=== PATIENT | female | born 1955 | race Caucasian/White ===

== ENCOUNTER 2021-08-21 10:28 | Inpatient (IN) | payer MEDICARE, BC ==
[2021-08-21] MEDS ORDERED: Ondansetron 4 MG/2 ML SDV IVPUSH ONE (11:14)
[2021-08-21] MEDS ORDERED: Sodium Chloride 0.9% 1,000 ML IV SCH (11:15)
[2021-08-21] MEDS ORDERED: Albuterol/Ipratropium 3.0-0.5 MG/3 ML Neb Soln NEB ONE (11:16)
[2021-08-21] MEDS: Sodium Chloride 0.9% 10 ML Syringe FLUSH PRN ×2 (11:26→13:21)
--- NOTE | 2021-08-21 12:05 | EDM.PDOC ---
ED HPI GENERAL MEDICAL PROBLEM - General Chief Complaint: General Stated Complaint: POSS COVID Time Seen by Provider: 08/21/21 10:59 Source of Information: Reports: Patient History Limitations: Reports: No Limitations - History of Present Illness INITIAL COMMENTS - FREE TEXT/NARRATIVE: The patient presents with generalized weakness. She was diagnosed with COVID 19 on August 09. She has a cough and shortness of breath. She has no fever or chills. She has no appetite but she is trying to eat and drink. She has no diarrhea. She has no chest pain. She has no abdominal pain. She has no lung problems like asthma. She has no heart problems. She has nausea at times but no vomiting. Onset: Gradual Duration: Week(s): Severity: Moderate Improves with: Reports: None Worsens with: Reports: None Associated Symptoms: Reports: Cough, Nausea/Vomiting, Shortness of Breath. Denies: Chest Pain, Fever/Chills, Headaches - Related Data Allergies Allergy/AdvReac Type Severity Reaction Status Date / Time No Known Allergies Allergy Verified 08/21/21 11:02 Home Meds: Home Meds . [No Known Home Meds] 08/21/21 [History] Past Medical History HEENT History: Reports: Impaired Vision Other HEENT History: wears eyeglasses [employer] History: Reports: - Infectious Disease History Infectious Disease History: Reports: Chicken Pox, Mumps, Novel Coronavirus - Past Surgical History GI Surgical History: Reports: Hernia, Abdominal, Other (See Below) Other GI Surgeries/Procedures: in infancy. Social & Family History - Tobacco Use Tobacco Use Status *Q: Never Tobacco User Second Hand Smoke Exposure: No - Caffeine Use Caffeine Use: Reports: Soda - Recreational Drug Use Recreational Drug Use: No ED ROS GENERAL - Review of Systems Review Of Systems: See Below Constitutional: Reports: Malaise, Weakness, Fatigue. Denies: Fever, Chills HEENT: Reports: No Symptoms Respiratory: Reports: Shortness of Breath, Cough Cardiovascular: Reports: No Symptoms Endocrine: Reports: Fatigue GI/Abdominal: Reports: Nausea. Denies: Abdominal Pain, Diarrhea, Vomiting : Reports: No Symptoms Musculoskeletal: Reports: No Symptoms ED EXAM, GENERAL - Physical Exam Exam: See Below Exam Limited By: No Limitations General Appearance: Alert, No Apparent Distress Ears: Normal External Exam Nose: Normal Inspection Head: Atraumatic, Normocephalic Neck: Normal Inspection Respiratory/Chest: No Respiratory Distress, Decreased Breath Sounds Cardiovascular: Regular Rate, Rhythm, No Edema, No Murmur GI/Abdominal: Soft, Non-Tender, No Organomegaly, No Mass Back Exam: Normal Inspection Extremities: Normal Inspection #1 Interpretation EKG Date: 08/21/21 Time: 11:40 Rhythm: NSR Rate (Beats/Min): 77 [place]: Normal P-Wave: Present QRS: Normal ST-T: Normal QT: Normal Course - Vital Signs Last Recorded V/S: Last Vital Signs Temp 97.5 F 08/21/21 10:55 Pulse 80 08/21/21 10:55 Resp 16 08/21/21 10:55 BP 172/82 H 08/21/21 10:55 Pulse Ox 91 L 08/21/21 11:16 - Orders/Labs/Meds Orders: Active Orders 24 hr Category Date Time Status Cardiac Monitoring [RC] . DIRECTED Care 08/21/21 11:14 Active Oxygen Therapy [RC] PRN Care 08/21/21 11:14 Active Peripheral IV Care [RC] . DIRECTED Care 08/21/21 11:14 Active RT Aerosol Therapy [RC] ASDIRECTED Care 08/21/21 11:16 Active Sodium Chloride 0.9% [Normal Saline] 1,000 ml Med 08/21/21 11:15 Active IV .BOLUS Sodium Chloride 0.9% [Saline Flush] Med 08/21/21 11:14 Active 10 ml FLUSH ASDIRECTED PRN ED Antiemetic Medication Reflex [OM.PC] Stat Oth 08/21/21 11:14 Ordered Peripheral IV Insertion Adult [OM.PC] Stat Oth 08/21/21 11:14 Ordered Medication Orders Sodium Chloride (Normal Saline) 1,000 mls @ 1,000 mls/hr IV .BOLUS JOSE Last Admin: 08/21/21 11:29 Dose: 1,000 mls/hr Documented by: SHAINA Sodium Chloride (Sodium Chloride 0.9% 10 Ml Syringe) 10 ml FLUSH ASDIRECTED PRN PRN Reason: Keep Vein Open Last Admin: 08/21/21 13:21 Dose: 10 ml Documented by: Admin: 08/21/21 11:26 Dose: 10 ml Documented by: SHAINA Labs: Laboratory Tests 08/21/21 08/21/21 08/21/21 Range/Units 11:25 11:25 11:25 WBC 9.27 (3.98-10.04) K/mm3 RBC 4.73 (3.98-5.22) M/mm3 Hgb 13.1 (11.2-15.7) gm/dl Hct 39.8 (34.1-44.9) % MCV 84.1 (79.4-94.8) fl MCH 27.7 (25.6-32.2) pg MCHC 32.9 (32.2-35.5) g/dl RDW Std Deviation 45.8 (36.4-46.3) fL Plt Count 336 (182-369) K/mm3 MPV 10.3 (9.4-12.3) fl Neut % (Auto) 79.2 H (34.0-71.1) % Lymph % (Auto) 11.0 L (19.3-51.7) % [place] % (Auto) 8.1 (4.7-12.5) % Eos % (Auto) 0.4 L (0.7-5.8) Baso % (Auto) 0.3 (0.1-1.2) % Neut # (Auto) 7.34 H (1.56-6.13) K/mm3 Lymph # (Auto) 1.02 L (1.18-3.74) K/mm3 [place] # (Auto) 0.75 H (0.24-0.36) K/mm3 Eos # (Auto) 0.04 (0.04-0.36) K/mm3 Baso # (Auto) 0.03 (0.01-0.08) K/mm3 Manual Slide Review Abnormal smear D-Dimer, Quantitative 13.35 H (0.19-0.50) mg/L Sodium 134 L (136-145) mEq/L Potassium 2.9 L (3.5-5.1) mEq/L Chloride 96 L (98-107) mEq/L Carbon Dioxide 29 (21-32) mEq/L Anion Gap 11.9 (5-15) BUN 8 (7-18) mg/dL Creatinine 0.7 (0.55-1.02) mg/dL Est Cr Clr Drug Dosing 78.95 mL/min Estimated GFR (MDRD) > 60 (>60) mL/min BUN/Creatinine Ratio 11.4 L (14-18) Glucose 128 H (70-99) mg/dL Calcium 8.4 L (8.5-10.1) mg/dL Total Bilirubin 0.8 (0.2-1.0) mg/dL AST 17 (15-37) U/L ALT 18 (14-59) U/L Alkaline Phosphatase 48 (46-116) U/L Troponin I < 0.017 (0.00-0.056) ng/mL C-Reactive Protein 16.5 H* (<1.0) mg/dL Total Protein 7.2 (6.4-8.2) g/dl Albumin 2.5 L (3.4-5.0) g/dl Globulin 4.7 gm/dL Albumin/Globulin Ratio 0.5 L (1-2) Meds: Medications Generic Name Dose Route Start Last Admin Trade Name Freq PRN Reason Stop Dose Admin Sodium Chloride 1,000 mls @ 1,000 mls/hr 08/21/21 11:15 08/21/21 11:29 Normal Saline IV 1,000 mls/hr .BOLUS JOSE Administration Sodium Chloride 10 ml 08/21/21 11:14 08/21/21 13:21 Sodium Chloride 0.9% 10 Ml Syringe FLUSH 10 ml ASDIRECTED PRN Administration Keep Vein Open Discontinued Medications Generic Name Dose Route Start Last Admin Trade Name Freq PRN Reason Stop Dose Admin Albuterol/Ipratropium 3 ml 08/21/21 11:16 08/21/21 11:37 Albuterol/Ipratropium 3.0-0.5 Mg/3 Ml Neb Soln NEB 08/21/21 11:17 3 ml ONETIME ONE Administration Apixaban 5 mg 08/21/21 13:47 Apixaban 5 Mg Tab PO 08/21/21 13:48 ONETIME ONE Iopamidol 100 ml 08/21/21 12:55 08/21/21 13:21 Iopamidol 755 Mg/Ml 100 Ml Bottle IVPUSH 08/21/21 12:56 100 ml ONETIME ONE Administration Ondansetron HCl 4 mg 08/21/21 11:14 08/21/21 11:27 Ondansetron 4 Mg/2 Ml Sdv IVPUSH 08/21/21 11:15 4 mg ONETIME ONE Administration - Re-Assessments/Exams Free Text/Narrative Re-Assessment/Exam: 08/21/21 12:03 I ordered an IV NS 1L bolus, zofran 4mg IV, albuterol 2 puffs, labs, CXR and EKG. Her EKG shows a NSR with no acute changes. Her CXR shows bilateral infiltrates. 08/21/21 13:50 Her CBC looks good. Her D-dimer was elevated at 13.35. Her Na was low at 134. Her potassium was low at 2.9. Her troponin is negative. Her CRP is elevated at 16.5. Her D-dimer is way more elevated then what I would expect with COVID [address] so I ordered a CT angio of her chest. Her oxygen was low at 85%. I put her on oxygen. Her CT angio shows prominent pulmonary emboli. Scattered areas of increased density within both lungs most likely representing COVID pneumonia. Large hiatal hernia. I took her off the oxygen and she still went down to 85%. I put her back on and I feel she needs to ge admitted. I called Dr Alvarez and he agreed to the admission. I ordered eliquis 5mg PO. I will also give her some potassium for he low potassium. Departure - Departure Time of Disposition: 13:55 Disposition: Admitted As Inpatient 67 Condition: Serious Clinical Impression: Hypoxia, Hypokalemia, COVID-19, Pneumonia due to COVID-19 virus Pulmonary emboli Qualifiers: Pulmonary embolism type: other Chronicity: acute Acute cor pulmonale presence: without acute cor pulmonale Qualified Code(s): I26.99 - Other pulmonary embolism without acute cor pulmonale - Discharge Information Referrals: PCP,None [Primary Care Provider] - Forms: ED Department Discharge Sepsis Event Note (ED) - Evaluation Sepsis Screening Result: No Definite Risk - Focused Exam Vital Signs: Vital Signs Temp Pulse Resp BP Pulse Ox Pulse Ox 08/21/21 11:16 91 L 08/21/21 10:55 97.5 F 80 16 172/82 H 91 L - My Orders Last 24 Hours: My Active Orders 08/21/21 11:14 Cardiac Monitoring [RC] . DIRECTED Oxygen Therapy [RC] PRN Peripheral IV Care [RC] . DIRECTED Sodium Chloride 0.9% [Saline Flush] 10 ml FLUSH ASDIRECTED PRN ED Antiemetic Medication Reflex [OM.PC] Stat Peripheral IV Insertion Adult [OM.PC] Stat 08/21/21 11:15 Sodium Chloride 0.9% [Normal Saline] 1,000 ml IV .BOLUS 08/21/21 11:16 RT Aerosol Therapy [RC] ASDIRECTED - Assessment/Plan Last 24 Hours: My Active Orders 08/21/21 11:14 Cardiac Monitoring [RC] . DIRECTED Oxygen Therapy [RC] PRN Peripheral IV Care [RC] . DIRECTED Sodium Chloride 0.9% [Saline Flush] 10 ml FLUSH ASDIRECTED PRN ED Antiemetic Medication Reflex [OM.PC] Stat Peripheral IV Insertion Adult [OM.PC] Stat 08/21/21 11:15 Sodium Chloride 0.9% [Normal Saline] 1,000 ml IV .BOLUS 08/21/21 11:16 RT Aerosol Therapy [RC] ASDIRECTED
[2021-08-21] MEDS ORDERED: Iopamidol 755 Mg/ML 100 ML Bottle IVPUSH ONE (12:55)
--- NOTE | 2021-08-21 12:55 | CR ---
Chest: Frontal view of the chest was obtained. Comparison: No prior chest imaging is available. Patchy increased density is seen within both lower lungs as well as minimal density within both upper lungs. Heart size and mediastinum are within normal limits. Bony structures show nothing acute. Impression: 1. Increased density within both sides of the chest highly suspicious for COVID pneumonia. 2. No other acute abnormality is seen. Diagnostic code #3
--- NOTE | 2021-08-21 13:32 | CT ---
CT chest Technique: Multiple axial sections through the chest were obtained. Intravenous contrast was utilized. Study has been performed as a pulmonary angiogram protocol. Comparison: Prior chest x-ray performed on the same day (11:11 AM). Findings: Filling defect is identified which bridges the right and left main pulmonary arteries. Pulmonary emboli extend into the left upper lung as well as into the left lower lung. Additional pulmonary emboli are seen within the right upper lung as well as right middle lobe and right lower lobe. Thoracic aorta shows no aneurysm. Small mediastinal lymph nodes are seen which are felt to be within normal limits. No axillary adenopathy is seen. Large hiatal hernia is noted. Other visualized upper abdominal structures show nothing acute. Lung window settings were reviewed. Patchy areas of increased density are noted throughout both lungs which are most prominent within the lower lungs. No pleural effusions are seen. Bone window settings were reviewed which show mild scattered degenerative change within the spine. No acute osseous abnormality is appreciated. Impression: 1. Prominent pulmonary emboli as described above. 2. Scattered areas of increased density within both lungs most likely representing COVID pneumonia. 3. Large hiatal hernia. Diagnostic code #5
[2021-08-21] MEDS ORDERED: Apixaban 5 MG Tab PO ONE ×2 (13:47→17:15)
[2021-08-21] MEDS ORDERED: Potassium Chloride 20 MEQ Tab.ER PO ONE ×2 (13:54→21:00)
[2021-08-21] MEDS ORDERED: Acetaminophen 325 MG Tab PO PRN (17:08)
[2021-08-21] MEDS ORDERED: Ondansetron 4 MG/2 ML SDV IV PRN (17:08)
[2021-08-21] MEDS ORDERED: Temazepam 7.5 MG Cap PO PRN (17:08)
--- NOTE | 2021-08-21 17:15 | PCM.HP.2 ---
H&P History of Present Illness - General Date of Service: 08/21/21 Admit Problem/Dx: Admission Diagnosis/Problem Admission Diagnosis/Problem Pneumonia - History of Present Illness Initial Comments - Free Text/Narative: 65-year-old with no prior medical problems and not vaccinated against COVID-19 presents to the emergency department with increasing shortness of breath and fatigue. She states that she was diagnosed on August 09, but the same time she started developing symptoms. She has had some loose stools and nausea at times. She does complain of decreased appetite but no significant change in her taste or smell. She does have a cough. She had some fever and chills early on but those have resolved. In the emergency department she was found to have a significantly elevated D- dimer of 13.3. CT angio of the chest showed prominent pulmonary emboli, without mention of heart strain. Also, scattered areas of increased density within both lungs most likely representing Covid pneumonia. Large hiatal hernia. - Related Data Allergies/Adverse Reactions: Allergies Allergy/AdvReac Type Severity Reaction Status Date / Time No Known Allergies Allergy Verified 08/21/21 15:58 Home Medications: Home Meds . [No Known Home Meds] 08/21/21 [History] Past Medical History HEENT History: Reports: Impaired Vision Other HEENT History: wears eyeglasses [employer] History: Reports: - Infectious Disease History Infectious Disease History: Reports: Chicken Pox, Mumps, Novel Coronavirus - Past Surgical History GI Surgical History: Reports: Hernia, Abdominal, Other (See Below) Other GI Surgeries/Procedures: in infancy. Social & Family History - Tobacco Use Tobacco Use Status *Q: Never Tobacco User Second Hand Smoke Exposure: No - Caffeine Use Caffeine Use: Reports: Soda - Recreational Drug Use Recreational Drug Use: No H&P Review of Systems - Review of Systems: Review Of Systems: Comprehensive ROS is negative, except as noted in HPI. Exam - Exam Exam: See Below - Vital Signs Vital Signs: Last Vital Signs Temp 97.5 F 08/21/21 15:20 Pulse 87 08/21/21 15:20 Resp 23 H 08/21/21 15:20 BP 145/83 H 08/21/21 15:20 Pulse Ox 97 08/21/21 15:20 Weight: 189 lb 14.4 oz - Exam Quality Assessment: Supplemental Oxygen General: Alert, Oriented, 4 HEENT: Conjunctiva Clear, Hearing Intact, Mucosa Moist & [place], Normal Nasal Septum Neck: Supple, Trachea Midline, 2 Lungs: Crackles (Bibasilar). No: Normal Respiratory Effort (Increased effort) Cardiovascular: Regular Rate, Regular Rhythm GI/Abdominal Exam: Normal Bowel Sounds, Soft, Non-Tender, No Organomegaly, No Distention, No Abnormal Bruit, No Mass Back Exam: Normal Inspection, Full Range of Motion, NT Extremities: Normal Inspection, Normal Range of Motion, No Pedal Edema, Normal Capillary Refill Skin: Warm, Dry, Intact Neuro Extensive - Mental Status: Alert, Oriented x3, Normal Mood/Affect, Normal Cognition, Memory Intact Psychiatric: Alert, Normal Affect, Normal Mood - Patient Data Lab Results Last 24 hrs: Laboratory Results - last 24 hr 08/21/21 08/21/21 08/21/21 Range/Units 11:25 11:25 11:25 WBC 9.27 (3.98-10.04) K/mm3 RBC 4.73 (3.98-5.22) M/mm3 Hgb 13.1 (11.2-15.7) gm/dl Hct 39.8 (34.1-44.9) % MCV 84.1 (79.4-94.8) fl MCH 27.7 (25.6-32.2) pg MCHC 32.9 (32.2-35.5) g/dl RDW Std Deviation 45.8 (36.4-46.3) fL Plt Count 336 (182-369) K/mm3 MPV 10.3 (9.4-12.3) fl Neut % (Auto) 79.2 H (34.0-71.1) % Lymph % (Auto) 11.0 L (19.3-51.7) % [place] % (Auto) 8.1 (4.7-12.5) % Eos % (Auto) 0.4 L (0.7-5.8) Baso % (Auto) 0.3 (0.1-1.2) % Neut # (Auto) 7.34 H (1.56-6.13) K/mm3 Lymph # (Auto) 1.02 L (1.18-3.74) K/mm3 [place] # (Auto) 0.75 H (0.24-0.36) K/mm3 Eos # (Auto) 0.04 (0.04-0.36) K/mm3 Baso # (Auto) 0.03 (0.01-0.08) K/mm3 Manual Slide Review Abnormal smear D-Dimer, Quantitative 13.35 H (0.19-0.50) mg/L Sodium 134 L (136-145) mEq/L Potassium 2.9 L (3.5-5.1) mEq/L Chloride 96 L (98-107) mEq/L Carbon Dioxide 29 (21-32) mEq/L Anion Gap 11.9 (5-15) BUN 8 (7-18) mg/dL Creatinine 0.7 (0.55-1.02) mg/dL Est Cr Clr Drug Dosing 78.95 mL/min Estimated GFR (MDRD) > 60 (>60) mL/min BUN/Creatinine Ratio 11.4 L (14-18) Glucose 128 H (70-99) mg/dL Calcium 8.4 L (8.5-10.1) mg/dL Total Bilirubin 0.8 (0.2-1.0) mg/dL AST 17 (15-37) U/L ALT 18 (14-59) U/L Alkaline Phosphatase 48 (46-116) U/L Troponin I < 0.017 (0.00-0.056) ng/mL C-Reactive Protein 16.5 H* (<1.0) mg/dL Total Protein 7.2 (6.4-8.2) g/dl Albumin 2.5 L (3.4-5.0) g/dl Globulin 4.7 gm/dL Albumin/Globulin Ratio 0.5 L (1-2) Result Diagrams: 08/21/21 11:25 08/21/21 11:25 Sepsis Event Note - Evaluation Sepsis Screening Result: No Definite Risk - Focused Exam Vital Signs: Vital Signs Temp Pulse Resp BP Pulse Ox Pulse Ox 08/21/21 15:20 97.5 F 87 23 H 145/83 H 97 08/21/21 11:16 91 L 08/21/21 10:55 97.5 F 80 16 172/82 H 91 L - Problem List (1) Hypoxia SNOMED Code(s): 299177255 ICD Code: R09.02 - HYPOXEMIA Status: Acute Current Visit: Yes (2) Pneumonia due to COVID-19 virus SNOMED Code(s): 791255754213911128 ICD Code: U07.1 - COVID-19; J12.82 - PNEUMONIA DUE TO CORONAVIRUS DISEASE 2019 Status: Acute Current Visit: Yes (3) Pulmonary emboli SNOMED Code(s): 40162814 ICD Code: I26.99 - OTHER PULMONARY EMBOLISM WITHOUT ACUTE COR PULMONALE Status: Acute Current Visit: Yes Qualifiers: Pulmonary embolism type: other Chronicity: acute Acute cor pulmonale presence: without acute cor pulmonale Qualified Code(s): I26.99 - Other pulmonary embolism without acute cor pulmonale Problem List Initiated/Reviewed/Updated: Yes Orders Last 24hrs: Active Orders 24 hr Category Date Time Status Patient Status [ADT] Routine ADT 08/21/21 15:19 Active Cardiac Monitoring [RC] . DIRECTED Care 08/21/21 11:14 Active Oxygen Therapy [RC] PRN Care 08/21/21 11:14 Active RT Aerosol Therapy [RC] ASDIRECTED Care 08/21/21 11:16 Active Up ad [place] [RC] ASDIRECTED Care 08/21/21 17:08 Ordered VTE/DVT Education [RC] PER UNIT ROUTINE Care 08/21/21 17:08 Ordered Vital Signs [RC] Q4H Care 08/21/21 17:08 Ordered Respiratory Care Assess and Treatment [CONS] Routine Cons 08/21/21 17:08 Ordered Regular Diet [DIET] Diet 08/21/21 Dinner Ordered C-REACTIVE PROTEIN [CHEM] AM Lab 08/22/21 05:11 Ordered CBC WITH AUTO DIFF [HEME] AM Lab 08/22/21 05:11 Ordered CMP [COMPREHENSIVE METABOLIC PN,CMP] [CHEM] AM Lab 08/22/21 05:11 Ordered MAGNESIUM [CHEM] AM Lab 08/22/21 05:11 Ordered PHOSPHORUS [CHEM] AM Lab 08/22/21 05:11 Ordered Acetaminophen [TylenoL] Med 08/21/21 17:08 Ordered 650 mg PO Q4H PRN Apixaban [Eliquis] Med 08/22/21 09:00 Ordered 10 mg PO BID Apixaban [Eliquis] Med 08/21/21 17:15 Once 5 mg PO ONETIME ONE Ondansetron [Zofran] Med 08/21/21 17:08 Ordered 4 mg IV Q6H PRN Potassium Chloride [Klor-Con M20] Med 08/21/21 21:00 Once 40 meq PO ONETIME ONE Remdesivir 100 mg Med 08/22/21 17:15 Ordered Sodium Chloride 0.9% [Normal Saline] 100 ml IV Q24H Remdesivir 200 mg Med 08/21/21 17:12 Ordered Sodium Chloride 0.9% [Normal Saline] 250 ml IV ONETIME Sodium Chloride 0.9% [Normal Saline] 1,000 ml Med 08/21/21 11:15 Active IV .BOLUS Sodium Chloride 0.9% [Saline Flush] Med 08/21/21 11:14 Active 10 ml FLUSH ASDIRECTED PRN Temazepam [Restoril] Med 08/21/21 17:08 Ordered 7.5 mg PO BEDTIME PRN dexAMETHasone Med 08/21/21 17:15 Ordered 6 mg PO Q24H ED Antiemetic Medication Reflex [OM.PC] Stat Oth 08/21/21 11:14 Ordered Peripheral IV Insertion Adult [OM.PC] Stat Oth 08/21/21 11:14 Ordered Resuscitation Status Routine Resus Stat 08/21/21 17:08 Ordered Medication Orders Acetaminophen (Acetaminophen 325 Mg Tab) 650 mg PO Q4H PRN PRN Reason: Pain (Mild 1-3)/fever Apixaban (Apixaban 5 Mg Tab) 5 mg PO ONETIME ONE Stop: 08/21/21 17:16 Apixaban (Apixaban 5 Mg Tab) 10 mg PO BID JOSE Dexamethasone (Dexamethasone 4 Mg Tab) 6 mg PO Q24H JOSE Stop: 08/30/21 17:16 Sodium Chloride (Normal Saline) 1,000 mls @ 1,000 mls/hr IV .BOLUS JOSE Last Admin: 08/21/21 11:29 Dose: 1,000 mls/hr Documented by: SHAINA Remdesivir 200 mg/ Sodium (Chloride) 250 mls @ 250 mls/hr IV ONETIME ONE Stop: 08/21/21 17:13 Remdesivir 100 mg/ Sodium (Chloride) 100 mls @ 100 mls/hr IV Q24H JOSE Stop: 08/25/21 18:14 Ondansetron HCl (Ondansetron 4 Mg/2 Ml Sdv) 4 mg IV Q6H PRN PRN Reason: Nausea/Vomiting Potassium Chloride (Potassium Chloride 20 Meq Tab.Er) 40 meq PO ONETIME ONE Stop: 08/21/21 21:01 Sodium Chloride (Sodium Chloride 0.9% 10 Ml Syringe) 10 ml FLUSH ASDIRECTED PRN PRN Reason: Keep Vein Open Last Admin: 08/21/21 13:21 Dose: 10 ml Documented by: [id number] Admin: 08/21/21 11:26 Dose: 10 ml Documented by: SHAINA Temazepam (Temazepam 7.5 Mg Cap) 7.5 mg PO BEDTIME PRN PRN Reason: Sleep Assessment/Plan Comment:: 65-year-old with no previous medical problems admitted for COVID-19 pneumonia and multiple pulmonary emboli COVID-19 pneumonia Hypoxemia Pulmonary emboli without right heart strain * Symptoms started approximately 10 days ago. * Currently on 1 to 2 L nasal cannula * Significant elevation in D-dimer with confirmed pulmonary emboli on CTA * CRP significantly elevated at 16.5 with an albumin of 2.5. * WBC 9.27 * Given Eliquis 5 mg in the emergency department. * is also currently admitted with Covid pneumonia Hypokalemia * Potassium 2.9 * Given potassium 40 mEq in the emergency department Plan * Admit to medical floor * FiO2 to keep SPO2 between 88 and 94% * Start remdesivir and dexamethasone secondary to hypoxemia * Give extra 5 mg of Eliquis then start 10 mg twice daily in the morning * Give another 40 mEq of KCl tonight * RT, I-S, prone positioning, and typical COVID-19 pneumonia treatment * Albuterol, duo nebs as needed * CBC, CMP, mag, Phos, CRP in the morning * VTE prophylaxis/treatment with Eliquis * CODE STATUS: Full code - Mortality Measure Prognosis:: Good
[2021-08-21] MEDS ORDERED: REMDESIVIR 200 MG in Sodium Chloride 0.9% 250 ML IV ONE (17:30)
[2021-08-21] MEDS: Dexamethasone 4 MG Tab PO SCH (18:18)
[2021-08-22] MEDS: Apixaban 5 MG Tab PO SCH ×2 (08:34→21:26)
--- NOTE | 2021-08-22 14:51 | PCM.PN ---
- General Info Date of Service: 08/22/21 Admission Dx/Problem (Free Text): Admission Diagnosis/Problem Admission Diagnosis/Problem Pneumonia Subjective Update: Patient is generally doing well. Denies significant shortness of breath but still has some. CRP did increase to 14.3. She is currently on 2 L nasal cannula. Functional Status: Reports: Pain Controlled - Review of Systems General: Reports: No Symptoms HEENT: Reports: No Symptoms Pulmonary: Reports: Shortness of Breath Cardiovascular: Reports: No Symptoms Gastrointestinal: Reports: No Symptoms Musculoskeletal: Reports: No Symptoms - Patient Data Vitals - Most Recent: Last Vital Signs Temp 97.9 F 08/22/21 11:34 Pulse 98 08/22/21 11:34 Resp 20 08/22/21 11:34 BP 132/66 08/22/21 11:34 Pulse Ox 91 L 08/22/21 11:34 Weight - Most Recent: 188 lb 11.2 oz I&O - Last 24 Hours: Intake & Output 08/21/21 08/22/21 08/22/21 22:59 06:59 14:59 Intake Total 250 650 Output Total 1200 Balance 250 -550 Lab Results Last 24 Hours: Laboratory Results - last 24 hr 08/22/21 08/22/21 Range/Units 07:06 07:06 WBC 8.69 (3.98-10.04) K/mm3 RBC 4.65 (3.98-5.22) M/mm3 Hgb 12.6 (11.2-15.7) gm/dl Hct 40.1 (34.1-44.9) % MCV 86.2 (79.4-94.8) fl MCH 27.1 (25.6-32.2) pg MCHC 31.4 L (32.2-35.5) g/dl RDW Std Deviation 47.5 H (36.4-46.3) fL Plt Count 379 H (182-369) K/mm3 MPV 10.3 (9.4-12.3) fl Neut % (Auto) 86.5 H (34.0-71.1) % Lymph % (Auto) 8.7 L (19.3-51.7) % [place] % (Auto) 3.8 L (4.7-12.5) % Eos % (Auto) 0 L (0.7-5.8) Baso % (Auto) 0.1 (0.1-1.2) % Neut # (Auto) 7.51 H (1.56-6.13) K/mm3 Lymph # (Auto) 0.76 L (1.18-3.74) K/mm3 [place] # (Auto) 0.33 (0.24-0.36) K/mm3 Eos # (Auto) 0.00 L (0.04-0.36) K/mm3 Baso # (Auto) 0.01 (0.01-0.08) K/mm3 Manual Slide Review Abnormal smear Sodium 138 (136-145) mEq/L Potassium 4.4 D (3.5-5.1) mEq/L Chloride 102 (98-107) mEq/L Carbon Dioxide 30 (21-32) mEq/L Anion Gap 10.4 (5-15) BUN 8 (7-18) mg/dL Creatinine 0.7 (0.55-1.02) mg/dL Est Cr Clr Drug Dosing 77.92 mL/min Estimated GFR (MDRD) > 60 (>60) mL/min BUN/Creatinine Ratio 11.4 L (14-18) Glucose 146 H (70-99) mg/dL Calcium 8.8 (8.5-10.1) mg/dL Phosphorus 3.3 (2.6-4.7) mg/dL Magnesium 2.3 (1.8-2.4) mg/dL Total Bilirubin 0.5 (0.2-1.0) mg/dL AST 18 (15-37) U/L ALT 22 (14-59) U/L Alkaline Phosphatase 49 (46-116) U/L C-Reactive Protein 14.3 H* (<1.0) mg/dL Total Protein 7.2 (6.4-8.2) g/dl Albumin 2.4 L (3.4-5.0) g/dl Globulin 4.8 gm/dL Albumin/Globulin Ratio 0.5 L (1-2) Med Orders - Current: Current Medications Acetaminophen (Acetaminophen 325 Mg Tab) 650 mg PO Q4H PRN PRN Reason: Pain (Mild 1-3)/fever Apixaban (Apixaban 5 Mg Tab) 10 mg PO BID JOSE Last Admin: 08/22/21 08:34 Dose: 10 mg Documented by: Dexamethasone (Dexamethasone 4 Mg Tab) 6 mg PO Q24H JOSE Stop: 08/30/21 18:01 Last Admin: 08/21/21 18:18 Dose: 6 mg Documented by: Remdesivir 100 mg/ Sodium (Chloride) 100 mls @ 100 mls/hr IV Q24H JOSE Stop: 08/25/21 18:29 Ondansetron HCl (Ondansetron 4 Mg/2 Ml Sdv) 4 mg IV Q6H PRN PRN Reason: Nausea/Vomiting Sodium Chloride (Sodium Chloride 0.9% 10 Ml Syringe) 10 ml FLUSH ASDIRECTED PRN PRN Reason: Keep Vein Open Last Admin: 08/21/21 13:21 Dose: 10 ml Documented by: Temazepam (Temazepam 7.5 Mg Cap) 7.5 mg PO BEDTIME PRN PRN Reason: Sleep Discontinued Medications Albuterol/Ipratropium (Albuterol/Ipratropium 3.0-0.5 Mg/3 Ml Neb Soln) 3 ml NEB ONETIME ONE Stop: 08/21/21 11:17 Last Admin: 08/21/21 11:37 Dose: 3 ml Documented by: Apixaban (Apixaban 5 Mg Tab) 5 mg PO ONETIME ONE Stop: 08/21/21 13:48 Last Admin: 08/21/21 13:55 Dose: 5 mg Documented by: Apixaban (Apixaban 5 Mg Tab) 5 mg PO ONETIME ONE Stop: 08/21/21 17:16 Last Admin: 08/21/21 18:17 Dose: 5 mg Documented by: Sodium Chloride (Normal Saline) 1,000 mls @ 1,000 mls/hr IV .BOLUS JOSE Last Admin: 08/21/21 11:29 Dose: 1,000 mls/hr Documented by: Remdesivir 200 mg/ Sodium (Chloride) 250 mls @ 250 mls/hr IV ONETIME ONE Stop: 08/21/21 18:29 Last Admin: 08/21/21 18:20 Dose: 250 mls/hr Documented by: Iopamidol (Iopamidol 755 Mg/Ml 100 Ml Bottle) 100 ml IVPUSH ONETIME ONE Stop: 08/21/21 12:56 Last Admin: 08/21/21 13:21 Dose: 100 ml Documented by: Ondansetron HCl (Ondansetron 4 Mg/2 Ml Sdv) 4 mg IVPUSH ONETIME ONE Stop: 08/21/21 11:15 Last Admin: 08/21/21 11:27 Dose: 4 mg Documented by: Potassium Chloride (Potassium Chloride 20 Meq Tab.Er) 40 meq PO ONETIME ONE Stop: 08/21/21 13:55 Last Admin: 08/21/21 13:57 Dose: 40 meq Documented by: Potassium Chloride (Potassium Chloride 20 Meq Tab.Er) 40 meq PO ONETIME ONE Stop: 08/21/21 21:01 Last Admin: 08/21/21 20:36 Dose: 40 meq Documented by: - Exam Quality Assessment: Supplemental Oxygen (2 L nasal cannula) General: Alert, Oriented HEENT: Pupils Equal, Mucous Membr. Moist/[place] Neck: Supple Lungs: Normal Respiratory Effort, Crackles (Right lower lobe crackles) Cardiovascular: Regular Rate, Regular Rhythm GI/Abdominal Exam: Normal Bowel Sounds, Soft, Non-Tender, No Distention Extremities: Normal Inspection, Non-Tender, No Pedal Edema, Normal Capillary Refill Skin: Warm, Dry, Intact Neurological: No New Focal Deficit - Patient Data Lab Results Last 24 hrs: Laboratory Results - last 24 hr 08/22/21 08/22/21 Range/Units 07:06 07:06 WBC 8.69 (3.98-10.04) K/mm3 RBC 4.65 (3.98-5.22) M/mm3 Hgb 12.6 (11.2-15.7) gm/dl Hct 40.1 (34.1-44.9) % MCV 86.2 (79.4-94.8) fl MCH 27.1 (25.6-32.2) pg MCHC 31.4 L (32.2-35.5) g/dl RDW Std Deviation 47.5 H (36.4-46.3) fL Plt Count 379 H (182-369) K/mm3 MPV 10.3 (9.4-12.3) fl Neut % (Auto) 86.5 H (34.0-71.1) % Lymph % (Auto) 8.7 L (19.3-51.7) % [place] % (Auto) 3.8 L (4.7-12.5) % Eos % (Auto) 0 L (0.7-5.8) Baso % (Auto) 0.1 (0.1-1.2) % Neut # (Auto) 7.51 H (1.56-6.13) K/mm3 Lymph # (Auto) 0.76 L (1.18-3.74) K/mm3 [place] # (Auto) 0.33 (0.24-0.36) K/mm3 Eos # (Auto) 0.00 L (0.04-0.36) K/mm3 Baso # (Auto) 0.01 (0.01-0.08) K/mm3 Manual Slide Review Abnormal smear Sodium 138 (136-145) mEq/L Potassium 4.4 D (3.5-5.1) mEq/L Chloride 102 (98-107) mEq/L Carbon Dioxide 30 (21-32) mEq/L Anion Gap 10.4 (5-15) BUN 8 (7-18) mg/dL Creatinine 0.7 (0.55-1.02) mg/dL Est Cr Clr Drug Dosing 77.92 mL/min Estimated GFR (MDRD) > 60 (>60) mL/min BUN/Creatinine Ratio 11.4 L (14-18) Glucose 146 H (70-99) mg/dL Calcium 8.8 (8.5-10.1) mg/dL Phosphorus 3.3 (2.6-4.7) mg/dL Magnesium 2.3 (1.8-2.4) mg/dL Total Bilirubin 0.5 (0.2-1.0) mg/dL AST 18 (15-37) U/L ALT 22 (14-59) U/L Alkaline Phosphatase 49 (46-116) U/L C-Reactive Protein 14.3 H* (<1.0) mg/dL Total Protein 7.2 (6.4-8.2) g/dl Albumin 2.4 L (3.4-5.0) g/dl Globulin 4.8 gm/dL Albumin/Globulin Ratio 0.5 L (1-2) Result Diagrams: 08/22/21 07:06 08/22/21 07:06 Sepsis Event Note - Evaluation Sepsis Screening Result: No Definite Risk - Focused Exam Vital Signs: Vital Signs Temp Pulse Resp BP Pulse Ox Pulse Ox 08/22/21 11:34 97.9 F 98 20 132/66 91 L 08/22/21 10:19 95 08/22/21 08:14 97.9 F 69 20 134/95 H 95 08/22/21 04:35 98.1 F 81 14 147/82 H 92 L - Problem List & Annotations (1) Hypoxia SNOMED Code(s): 355556715 Code(s): R09.02 - HYPOXEMIA Status: Acute Current Visit: Yes (2) Pneumonia due to COVID-19 virus SNOMED Code(s): 143356637847573747 Code(s): U07.1 - COVID-19; J12.82 - PNEUMONIA DUE TO CORONAVIRUS DISEASE 2019 Status: Acute Current Visit: Yes (3) Pulmonary emboli SNOMED Code(s): 73804216 Code(s): I26.99 - OTHER PULMONARY EMBOLISM WITHOUT ACUTE COR PULMONALE Status: Acute Current Visit: Yes Qualifiers: Pulmonary embolism type: other Chronicity: acute Acute cor pulmonale presence: without acute cor pulmonale Qualified Code(s): I26.99 - Other pulmonary embolism without acute cor pulmonale - Problem List Review Problem List Initiated/Reviewed/Updated: Yes - My Orders Last 24 Hours: My Active Orders 08/21/21 Dinner Regular Diet [DIET] 08/21/21 17:08 Up ad Shantell [RC] QSHIFT VTE/DVT Education [RC] DAILY Vital Signs [RC] Q4HR Respiratory Care Assess and Treatment [CONS] Routine Acetaminophen [TylenoL] 650 mg PO Q4H PRN Ondansetron [Zofran] 4 mg IV Q6H PRN Temazepam [Restoril] 7.5 mg PO BEDTIME PRN Resuscitation Status Routine 08/21/21 18:00 dexAMETHasone 6 mg PO Q24H 08/21/21 23:07 Oxygen Therapy Adult [Oxygen Therapy] [RC] ASDIRECTED 08/21/21 23:09 Pulse Oximetry [RC] CONTINUOUS 08/22/21 09:00 Apixaban [Eliquis] 10 mg PO BID 08/22/21 10:19 RT Incentive Spirometry [RC] ASDIRECTED 08/22/21 17:30 Remdesivir 100 mg Sodium Chloride 0.9% [Normal Saline] 100 ml IV Q24H - Plan Plan:: 65-year-old with no previous medical problems admitted for COVID-19 pneumonia and multiple pulmonary emboli COVID-19 pneumonia Hypoxemia Pulmonary emboli without right heart strain Date of admission 08/21/2021 * Symptoms started approximately 10 days ago. * Currently on 1 to 2 L nasal cannula * Significant elevation in D-dimer with confirmed pulmonary emboli on CTA * CRP significantly elevated at 16.5 with an albumin of 2.5. * WBC 9.27 * Given Eliquis 5 mg in the emergency department. * is also currently admitted with Covid pneumonia 08/22/2021 Patient currently on 2 L nasal cannula. She has very minimal respiratory symptoms. She is currently also on Eliquis 10 mg twice daily with a CRP of 14.3. Continue to monitor overnight and may be able to discharge her tomorrow on oxygen if she tolerates that. We will continue her on remdesivir and dexamethasone at this time. Hypokalemia * Potassium 2.9 * Given potassium 40 mEq in the emergency department 08/22/2021 Resolved, potassium 4.4 Plan * Admit to medical floor * FiO2 to keep SPO2 between 88 and 94% * Day 2 of remdesivir and dexamethasone secondary to hypoxemia * Continue Eliquis 10 mg twice daily with plan on discharge for 3 to 6 months * Continue monitoring potassium * RT, I-S, prone positioning, and typical COVID-19 pneumonia treatment * Albuterol, duo nebs as needed * CBC, CMP, mag, Phos, CRP in the morning * VTE prophylaxis/treatment with Eliquis * CODE STATUS: Full code
[2021-08-22] MEDS: Dexamethasone 4 MG Tab PO SCH (17:09)
[2021-08-22] MEDS ORDERED: REMDESIVIR 100 MG in Sodium Chloride 0.9% 100 ML IV SCH (17:30)
[2021-08-23] MEDS: Apixaban 5 MG Tab PO SCH (08:50)
--- NOTE | 2021-08-23 09:46 | PCM.DCSUM1 ---
Discharge Summary - Hospital Course HPI Initial Comments: 65-year-old with no prior medical problems and not vaccinated against COVID-19 presents to the emergency department with increasing shortness of breath and fatigue. She states that she was diagnosed on August 09, but the same time she started developing symptoms. She has had some loose stools and nausea at times. She does complain of decreased appetite but no significant change in her taste or smell. She does have a cough. She had some fever and chills early on but those have resolved. In the emergency department she was found to have a significantly elevated D- dimer of 13.3. CT angio of the chest showed prominent pulmonary emboli, without mention of heart strain. Also, scattered areas of increased density within both lungs most likely representing Covid pneumonia. Large hiatal hernia. 65-year-old with no previous medical problems admitted for COVID-19 pneumonia and multiple pulmonary emboli COVID-19 pneumonia Hypoxemia Pulmonary emboli without right heart strain * Symptoms started approximately 10 days ago. * Currently on 1 to 2 L nasal cannula * Significant elevation in D-dimer with confirmed pulmonary emboli on CTA * CRP significantly elevated at 16.5 with an albumin of 2.5. * WBC 9.27 * Given Eliquis 5 mg in the emergency department. * is also currently admitted with Covid pneumonia Hypokalemia * Potassium 2.9 * Given potassium 40 mEq in the emergency department Plan * Admit to medical floor * FiO2 to keep SPO2 between 88 and 94% * Start remdesivir and dexamethasone secondary to hypoxemia * Give extra 5 mg of Eliquis then start 10 mg twice daily in the morning * Give another 40 mEq of KCl tonight * RT, I-S, prone positioning, and typical COVID-19 pneumonia treatment * Albuterol, duo nebs as needed * CBC, CMP, mag, Phos, CRP in the morning * VTE prophylaxis/treatment with Eliquis * CODE STATUS: Full code - Mortality Measure Prognosis:: Good Diagnosis: Stroke: No - Discharge Data Discharge Date: 08/23/21 Discharge Disposition: Home, Self-Care 01 Condition: Good - Referral to Home Health Primary Care Physician: PCP None - Discharge Diagnosis/Problem(s) (1) Hypoxia SNOMED Code(s): 120814995 ICD Code: R09.02 - HYPOXEMIA Status: Acute Current Visit: Yes (2) Pneumonia due to COVID-19 virus SNOMED Code(s): 442736368129313208 ICD Code: U07.1 - COVID-19; J12.82 - PNEUMONIA DUE TO CORONAVIRUS DISEASE 2018 Status: Acute Current Visit: Yes (3) Pulmonary emboli SNOMED Code(s): 89733066 ICD Code: I26.99 - OTHER PULMONARY EMBOLISM WITHOUT ACUTE COR PULMONALE Status: Acute Current Visit: Yes Qualifiers: Pulmonary embolism type: other Chronicity: acute Acute cor pulmonale presence: without acute cor pulmonale Qualified Code(s): I26.99 - Other pulmonary embolism without acute cor pulmonale - Patient Summary/Data Consults: Consultations 08/21/21 17:08 Respiratory Care Assess and Treatment [CONS] Routine Hospital Course: Patient was admitted for pulmonary embolism COVID-19 pneumonia, and hypoxemia. She was started on Eliquis 10 mg twice daily, remdesivir, and dexamethasone. Patient's oxygen requirements decreased over the last 2 days and this morning she has been on room air. Patient also initially presented with potassium of 2.9 which was corrected with supplementation. Patient be discharged home on Eliquis 10 mg twice a day for total of 7 days and then 5 mg twice a day following that. She will need Eliquis for at least 3 months for her pulmonary embolism. She will follow up with her primary care provider within [address] of the chest was performed on 08/21/2021 which showed prominent pulmonary emboli without right heart strain. Scattered areas of increased density within both lungs most likely representing Covid pneumonia. Large hiatal hernia. - Patient Instructions Diet: Usual Diet as Tolerated Activity: As Tolerated Driving: May Drive Today Showering/Bathing: May Shower Notify Provider of: Fever, Increased Pain Other/Special Instructions: You are being prescribed Eliquis 5 mg. You need to take 2 tablets twice a day for the next 5 days and then decrease it to 1 tablet twice a day after that. Please follow-up with your primary care provider early next week. If you develop any serious bleeding please return to the emergency department. If you develop black tarry stools also return to the emergency department. - Discharge Plan *PRESCRIPTION DRUG MONITORING PROGRAM REVIEWED*: No *COPY OF PRESCRIPTION DRUG MONITORING REPORT IN PATIENT ASTRID: No Prescriptions/Med Rec: Apixaban [Eliquis] 10 mg PO BID #60 tablet Home Medications: Home Meds Apixaban [Eliquis] 10 mg PO BID #60 tablet 08/23/21 [Rx] Patient Handouts: COVID-19 Frequently Asked Questions, COVID-19, 10 Things You Can Do to Manage Your COVID-19 Symptoms at Home - [facility] (05/27/2021), Pulmonary Embolism, Apixaban oral tablets, Venous Thromboembolism Prevention, Sepsis, Self Care, Adult Referrals: Makenna Rivas, [employer] [Nurse Practitioner] - 08/29/21 10:40 am (this is your arrival time for 11:00 appointment. Please being insurance cards and photo ID.) - Discharge Summary/Plan Comment DC Time >30 min.: Yes Total # of Minutes for Discharge Time: 35 min - General Info Date of Service: 08/23/21 Admission Dx/Problem (Free Text: Admission Diagnosis/Problem Admission Diagnosis/Problem Pneumonia Subjective Update: 56-year-old female with COVID-19 pneumonia and pulmonary emboli. She is doing well this morning and is off oxygen. Appetite is good. Functional Status: Reports: Pain Controlled - Review of Systems General: Reports: No Symptoms HEENT: Reports: No Symptoms Pulmonary: Reports: No Symptoms Cardiovascular: Reports: No Symptoms Gastrointestinal: Reports: No Symptoms Musculoskeletal: Reports: No Symptoms - Patient Data Vitals - Most Recent: Last Vital Signs Temp 98.1 F 08/23/21 02:56 Pulse 78 08/23/21 02:56 Resp 20 08/23/21 02:56 BP 112/75 08/23/21 02:56 Pulse Ox 92 L 08/23/21 09:00 Weight - Most Recent: 189 lb 3.2 oz I&O - Last 24 hours: Intake & Output 08/22/21 08/23/21 08/23/21 22:59 06:59 14:59 Intake Total 1400 1100 Output Total 1400 1500 Balance 0 -400 Med Orders - Current: Current Medications Acetaminophen (Acetaminophen 325 Mg Tab) 650 mg PO Q4H PRN PRN Reason: Pain (Mild 1-3)/fever Apixaban (Apixaban 5 Mg Tab) 10 mg PO BID [facility] Last Admin: 08/23/21 08:50 Dose: 10 mg Documented by: Dexamethasone (Dexamethasone 4 Mg Tab) 6 mg PO Q24H [facility] Stop: 08/30/21 18:01 Last Admin: 08/22/21 17:09 Dose: 6 mg Documented by: Remdesivir 100 mg/ Sodium (Chloride) 100 mls @ 100 mls/hr IV Q24H JOSE Stop: 08/25/21 18:29 Last Admin: 08/22/21 17:10 Dose: 100 mls/hr Documented by: Ondansetron HCl (Ondansetron 4 Mg/2 Ml Sdv) 4 mg IV Q6H PRN PRN Reason: Nausea/Vomiting Sodium Chloride (Sodium Chloride 0.9% 10 Ml Syringe) 10 ml FLUSH ASDIRECTED PRN PRN Reason: Keep Vein Open Last Admin: 08/21/21 13:21 Dose: 10 ml Documented by: Temazepam (Temazepam 7.5 Mg Cap) 7.5 mg PO BEDTIME PRN PRN Reason: Sleep Discontinued Medications Albuterol/Ipratropium (Albuterol/Ipratropium 3.0-0.5 Mg/3 Ml Neb Soln) 3 ml NEB ONETIME ONE Stop: 08/21/21 11:17 Last Admin: 08/21/21 11:37 Dose: 3 ml Documented by: Apixaban (Apixaban 5 Mg Tab) 5 mg PO ONETIME ONE Stop: 08/21/21 13:48 Last Admin: 08/21/21 13:55 Dose: 5 mg Documented by: Apixaban (Apixaban 5 Mg Tab) 5 mg PO ONETIME ONE Stop: 08/21/21 17:16 Last Admin: 08/21/21 18:17 Dose: 5 mg Documented by: Sodium Chloride (Normal Saline) 1,000 mls @ 1,000 mls/hr IV .BOLUS JOSE Last Admin: 08/21/21 11:29 Dose: 1,000 mls/hr Documented by: Remdesivir 200 mg/ Sodium (Chloride) 250 mls @ 250 mls/hr IV ONETIME ONE Stop: 08/21/21 18:29 Last Admin: 08/21/21 18:20 Dose: 250 mls/hr Documented by: Iopamidol (Iopamidol 755 Mg/Ml 100 Ml Bottle) 100 ml IVPUSH ONETIME ONE Stop: 08/21/21 12:56 Last Admin: 08/21/21 13:21 Dose: 100 ml Documented by: Ondansetron HCl (Ondansetron 4 Mg/2 Ml Sdv) 4 mg IVPUSH ONETIME ONE Stop: 08/21/21 11:15 Last Admin: 08/21/21 11:27 Dose: 4 mg Documented by: Potassium Chloride (Potassium Chloride 20 Meq Tab.Er) 40 meq PO ONETIME ONE Stop: 08/21/21 13:55 Last Admin: 08/21/21 13:57 Dose: 40 meq Documented by: Potassium Chloride (Potassium Chloride 20 Meq Tab.Er) 40 meq PO ONETIME ONE Stop: 08/21/21 21:01 Last Admin: 08/21/21 20:36 Dose: 40 meq Documented by: - Exam Quality Assessment: Denies: Supplemental Oxygen General: Reports: Alert, Oriented HEENT: Reports: Pupils Equal, Mucous Membr. Moist/[place] Neck: Reports: Supple Lungs: Reports: Clear to Auscultation, Normal Respiratory Effort Cardiovascular: Reports: Regular Rate, Regular Rhythm GI/Abdominal Exam: Normal Bowel Sounds, Soft, Non-Tender, No Organomegaly, No Distention, No Abnormal Bruit, No Mass Extremities: Normal Inspection, Normal Range of Motion, Non-Tender, No Pedal Edema, Normal Capillary Refill Skin: Reports: Warm, Dry, Intact Psy/Mental Status: Reports: Alert, Normal Affect, Normal Mood
== END 2021-08-23 16:35 | disposition home or self-care (01) | DRG 177 ==
LOC: JD.ED 10:28 → JD.MS 15:22
PROVIDERS: ADMIT Family Medicine; ATTEND Family Medicine
PROC: 8E0ZXY6 Isolation (ICD-10-PCS; principal; 2021-08-21)
PROC: XW033E5 Introduction of Remdesivir Anti-infective into Peripheral Vein, Percutaneous Approach, New Technology Group 5 (ICD-10-PCS; 2021-08-21)
PROC: 3E0333Z Introduction of Anti-inflammatory into Peripheral Vein, Percutaneous Approach (ICD-10-PCS; 2021-08-21)
DX: U07.1 COVID-19 (principal); J12.82 Pneumonia due to coronavirus disease 2019; J12.89 Other viral pneumonia; I26.99 Other pulmonary embolism without acute cor pulmonale; R09.02 Hypoxemia; E87.6 Hypokalemia; H54.7 Unspecified visual loss; Z97.3 Presence of spectacles and contact lenses
CPT/HCPCS: 36415; 71045; 71275; 80053; 84484; 85025; 85379; 86140; 93005; 94640; A9270 ×2; J2405; J7030; Q9967; 83735; 84100; 94762; 96374; 99285-25; J7050; J7620-GY; J8540

== ENCOUNTER 2025-07-30 07:36 | Day surgery (SDC) | payer MEDICARE, OTHER ==
[2025-07-30] MEDS: Tetracaine HCl/PF 0.5% 4 ML Bottle EYEBOTH SCH (06:59)
[2025-07-30] MEDS: Lidocaine 1% PF 2 ML SDV INJECT SCH (06:59)
[2025-07-30] MEDS: Cefuroxime 10 MG/ML SYRINGE EYERT SCH (07:00)
[2025-07-30] MEDS: Polymyxin B/Trimethoprim 10 ML Bottle EYERT SCH (07:00)
[2025-07-30] MEDS: Pilocarpine 4% Ophth Soln 15 ML Bot EYERT SCH (07:00)
[2025-07-30] MEDS: Tropicamide 1% Ophth Soln 3 ML Bottle EYERT SCH (08:01)
== END 2025-07-30 10:05 ==
LOC: JD.SDS 07:36
PROVIDERS: ATTEND Ophthalmology
DX: H25.813 Combined forms of age-related cataract, bilateral (principal); H43.813 Vitreous degeneration, bilateral; H11.823 Conjunctivochalasis, bilateral; H35.373 Puckering of macula, bilateral
CPT/HCPCS: 66984; A9270; J0697; J3490

== ENCOUNTER 2025-09-03 08:40 | Day surgery (SDC) | payer MEDICARE, OTHER ==
[2025-09-03] MEDS: Tetracaine HCl/PF 0.5% 4 ML Bottle EYEBOTH SCH (07:21)
[2025-09-03] MEDS: Pilocarpine 4% Ophth Soln 15 ML Bot EYELF SCH (07:22)
[2025-09-03] MEDS: Lidocaine 1% PF 2 ML SDV INJECT SCH (07:22)
[2025-09-03] MEDS: Cefuroxime 10 MG/ML SYRINGE EYELF SCH (07:22)
[2025-09-03] MEDS: Polymyxin B/Trimethoprim 10 ML Bottle EYELF SCH (07:22)
[2025-09-03] MEDS: Tropicamide 1% Ophth Soln 3 ML Bottle EYELF SCH (09:23)
== END 2025-09-03 11:02 ==
LOC: JD.SDS 08:40
PROVIDERS: ATTEND Ophthalmology
DX: H25.812 Combined forms of age-related cataract, left eye (principal); H52.31 Anisometropia; Z96.1 Presence of intraocular lens
CPT/HCPCS: A9270-GY; J0697; J3490